=== PATIENT | female | born 2000 | race African-American/Black ===

== ENCOUNTER 2021-05-18 09:42 | Observation (INO) | payer OTHER, SELFPAY ==
[2021-05-18] VITALS (11 sets, daily range): BP systolic 93–112; BP diastolic 63–73; PULSE 90–102; TEMP 37; BMI 24.8
[2021-05-18 10:57] LABS: Add Urine Microscopic? YES; Appearance Urine Cloudy (Clear); Bilirubin Urine Negative (Negative); Blood Urine Negative (Negative); Color Urine Yellow (Yellow); Glucose Urine UA Negative (Negative); Ketones Urine 2+ mg/dL (Negative); Leukocyte Esterase Ur Trace LEU/UL (Negative); Mucus Urine Rare /lpf; Nitrate Urine Negative (Negative); Protein Urine 1+ mg/dL (Negative); RBC Urine 0-2 /hpf (0-2); Specific Grav Ur 1.023 (1.001-1.035); Squamous Epithelial Cell Urine Many /hpf (Few); Urobilinogen Urine Negative mg/dL (<2.0); WBC Urine 0-3 /hpf
--- NOTE | 2021-05-18 11:19 | PC.NURSE ---
called,informed pt came in by ambulance for n/v. Pt sees at [place]. FHR is appropriate for gestational age, no contractions noted on monitor. Pt states the n/v has been a chronic problem her entire and has multiple medications she takes. Orders received for phenergan IVP, CMP, UA, D5LR bolus of 1L
[2021-05-18] MEDS: DEXTROSE 5%/LACTATED RINGERS 1,000 ML 999 ML IV CONT (11:53)
[2021-05-18] MEDS: PROMETHAZINE HCL 25 MG/ML AMPUL 12.5 MG IV PUSH (11:54)
[2021-05-18 12:59] LABS: Alanine Aminotransferase 18 U/L (4-35); Alkaline Phosphatase 80 U/L (38-126); Anion Gap 7 mmol/L (8-16); Aspartate Amino Transferase 33 U/L (14-36); Bilirubin,Total 0.5 mg/dL (0.2-1.3); Blood Urea Nitrogen 5 mg/dL (7-17); Carbon Dioxide 23 mmol/L (22-30); Chloride 107 mmol/L (98-107); Estimated Glomerular Filt Rate > 60; Glucose 74 mg/dL (65-110); Potassium 4.8 mmol/L (3.4-5.0); Sodium 137 mmol/L (137-145)
--- NOTE | 2021-05-18 13:34 | OBADM ---
This patient, Binu Moon, admitted to the OB room [facility] for observation. Patient/family oriented to hospital policies and general routines including ID bracelet, bed and alarms, visiting hours, pain management, procedures, bathroom and other care routines, personal items, smoking policy, room service/diet, and visiting hours. Patient/Family are encouraged to report perceived risks to care and to ask questions if they do not understand what they are told or what they should do.
--- NOTE | 2021-05-18 13:39 | PC.NURSE ---
Pt has been sleeping, was able to eat ice chips and drink orange juice.
--- NOTE | 2021-05-18 14:30 | PC.NURSE ---
1353- called,informed pt is asking to go home. Labs read and informed pt has had her 1L bolus. Orders received to discharge pt home.
--- NOTE | 2021-06-09 10:54 | PM.OBTRLD ---
OB - Triage/Final Diagnosis Visit Information Comments/Additional reasons for admission: I have assessed the risk for this patient, Binu Moon, and determined that she would benefit from observation care. Evaluation Laboratory results: Laboratory Tests 05/18/21 05/18/21 10:48 11:51 Sodium 137 Potassium 4.8 Chloride 107 Carbon Dioxide 23 Anion Gap 7 L BUN 5 L Creatinine 0.50 L Estim Creat Clear Calc Not Reportable Estimated GFR > 60 Glucose 74 Calcium 9.0 Total Bilirubin 0.5 AST 33 ALT 18 Alkaline Phosphatase 80 Total Protein 7.0 Albumin 4.0 Urine Color Yellow Urine Appearance Cloudy H Urine pH 6.0 Ur Specific [place] 1.023 Urine Protein 1+ H Urine Glucose (UA) Negative Urine Ketones 2+ H Ur Blood (Man) Negative Urine Nitrate Negative Urine Bilirubin Negative Urine Urobilinogen Negative Leukocyte Esterase Rfl Trace H Urine RBC 0-2 Urine WBC 0-3 Ur Squamous Epith Cells Many H Urine Mucus Rare Final Diagnosis (1) Nausea and vomiting during : Code(s): O21.9 - Vomiting of , unspecified Status: Acute
== END 2021-05-18 14:20 | disposition home or self-care (01) ==
PROVIDERS: Admitting Provider Obstetrics & Gynecology; Visit Provider Obstetrics & Gynecology
DX: O21.2 Late vomiting of pregnancy (principal); Z3A.30 30 weeks gestation of pregnancy
CPT/HCPCS: 36415; 80053; 81001; 96374; G0378; G0379; J2550; J7121